=== PATIENT | male | born 1960 | race Caucasian/White ===

== ENCOUNTER 2024-02-15 06:58 | Outpatient (REF) | payer BC, OTHER, SELFPAY ==
--- NOTE | ~2024-02-15 | XR_ITS ---
EXAMINATION: XR KNEE, RIGHT CLINICAL INFORMATION: Knee pain COMPARISON: None available. TECHNIQUE: Four views of the right knee. FINDINGS: No fracture or joint effusion. Alignment is anatomic. Joint spaces are maintained. No abnormal soft tissue calcification. Study present for dictation on 03/06/2024 XR/XR knee RT 3V IMPRESSION: No radiographic evidence of acute osseous abnormality.
== END 2024-02-15 06:59 | disposition home or self-care (01) ==
LOC: HO.HOSX 06:58
PROVIDERS: Visit Provider Orthopaedic Surgery
DX: M25.561 Pain in right knee (principal)
CPT/HCPCS: 73562

== ENCOUNTER 2024-02-15 14:58 | Outpatient (AMB) | payer BC, SELFPAY ==
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
== END 2024-02-15 15:29 | disposition home or self-care (01) ==
PROVIDERS: PCP Internal Medicine; Visit Provider Orthopaedic Surgery
DX: M25.561 Pain in right knee (principal)
CPT/HCPCS: 99203